=== PATIENT | female | born 1940 | race Caucasian/White ===

== ENCOUNTER 2017-03-16 08:04 | Day surgery (SDC) | payer OTHER ==
[2017-03-16] MEDS ORDERED: LIDOCAINE HCL/PF 2% SDV 5ML VIAL ONE (08:50)
[2017-03-16] MEDS ORDERED: PROPOFOL 20 ML ONE ×3 (08:50)
[2017-03-16 09:14] VITALS: BMI 29.5
[2017-03-16 10:13] VITALS: TEMP 98
[2017-03-16 14:15] VITALS: BP 110/46; PULSE 57
--- NOTE | 2017-03-17 12:35 | PATH ---
Surgical Pathology Report Patient Name: PRINCESS PATRICIA [facility]. Rec. #: [id number] /Age/Gender: 1940 (Age: 76) / F Account: [id number] Location: U-ENDOSCOPY Taken: 03/16/2017 Received: 03/16/2017 Reported: 03/17/2017 Physicians: Karla Barber M.D. Specimen(s) Received A: POLYP MID TRANSVERSE B: POLYPS ASCENDING C: BX CECUM D: BX R/O CECAL POLYP E: POLYP DISTAL TRANSVERSE Clinical History Adenoma surveillance, diarrhea Colon polyps, diverticulosis Final Diagnosis A. COLON, MID TRANSVERSE, POLYP, POLYPECTOMY: FRAGMENTS OF ADENOMATOUS POLYP WITH CAUTERY ARTIFACT. B. COLON, ASCENDING, POLYP, POLYPECTOMY: FRAGMENTS OF TUBULAR ADENOMA. SEPARATE FRAGMENTS OF SESSILE SERRATED ADENOMA. C. COLON, CECUM, BIOPSY: COLONIC WITHOUT SIGNIFICANT PATHOLOGIC CHANGES. NO EVIDENCE OF ACTIVE INFLAMMATION, SIGINIFICANT ARCHITECTURAL DISTORTION, GRANULOMATA OR DYSPLASIA; NO EVIDENCE OF MICROSCOPIC COLITIS. D. COLON, CECUM, R/O POLYP, BIOPSY: CONSISTENT WITH POSTINFLAMMATORY TYPE POLYP. E. COLON, DISTAL TRANSVERSE, POLYP, POLYPECTOMY: HYPERPLASTIC-TYPE POLYP WITH FOCAL FEATURES OF SESSILE SERRATED ADENOMA. Electronically Signed Man Cooper M.D. Gross Description A. Received in formalin, labeled "polyp mid transverse" are 2 qureshi, irregular portions of soft tissue measuring 0.1 and 0.5 cm in greatest dimension. The specimens are submitted in toto in one cassette. B. Received in formalin, labeled "polyps ascending" are 7 qureshi, irregular portions of soft tissue ranging from 0.1-0.3 cm in greatest dimension. The specimens are submitted in toto in one cassette. C. Received in formalin, labeled "biopsy cecum" are 2 qureshi, irregular portions of soft tissue measuring 0.2 and 0.3 cm in greatest dimension. The specimens are submitted in toto in one cassette. D. Received in formalin, labeled "biopsy rule out cecal polyp" are 2 qureshi, irregular portions of soft tissue measuring 0.2 and 0.3 cm in greatest dimension. The specimens are submitted in toto in one cassette. E. Received in formalin, labeled "polyp distal transverse" are 2 qureshi, irregular portions of soft tissue measuring 0.2 and 0.5 cm in greatest dimension. The specimens are submitted in toto in one cassette. 03/16/201703/16/2017
== END 2017-03-16 11:00 | disposition home or self-care (01) ==
LOC: JASU-ENDO 08:04
PROVIDERS: ATTEND Internal Medicine Gastroenterology
PROC: 0DBK8ZX Excision of Ascending Colon, Via Natural or Artificial Opening Endoscopic, Diagnostic (ICD-10-PCS; 2017-03-16)
PROC: 0DBL8ZX Excision of Transverse Colon, Via Natural or Artificial Opening Endoscopic, Diagnostic (ICD-10-PCS; principal; 2017-03-16 09:00)
DX: Z12.11 Encounter for screening for malignant neoplasm of colon (principal); Z86.010 Personal history of colon polyps; D12.3 Benign neoplasm of transverse colon; D12.2 Benign neoplasm of ascending colon; K64.8 Other hemorrhoids; K57.30 Diverticulosis of large intestine without perforation or abscess without bleeding
CPT/HCPCS: 36415; 87045; 87046; 87177; 87209; 88305-TC

== ENCOUNTER → 2020-07-11 | Day surgery (SDC) | payer OTHER ==
--- OUTSIDE RECORDS SUMMARY | 2020-07-11 12:47 | XMS ---
:1940 Author Organization [facility] Support Name Relationship Address Phone RE, RETIRED Unavailable Unavailable Unavailable RE Unavailable Unavailable Unavailable VERNON BRADEN SISTER [address] [place] [address] Re-disclosure Warning The records that you are about to access may contain information from federally- assisted alcohol or drug abuse programs. If such information is present, then the following federally mandated warning applies: This information has been disclosed to you from records protected by federal confidentiality rules (42 CFR part 2). The federal rules prohibit you from making any further disclosure of this information unless further disclosure is expressly permitted by the written consent of the person to whom it pertains or as otherwise permitted by 42 CFR part 2. A general authorization for the release of medical or other information is NOT sufficient for this purpose. The Federal rules restrict any use of the information to criminally investigate or prosecute any alcohol or drug abuse patient.The records that you are about to access may contain highly sensitive health information, the redisclosure of which is protected by Article 27-F of the [facility] Public Health law. If you continue you may haveaccess to information: Regarding HIV / AIDS; Provided by facilities licensed or operated by the [facility] Office of Mental Health; or Provided by the [facility] Office for People With Developmental Disabilities. If such information is present, then the following [facility] mandated warning applies: This information has been disclosed to you from confidential records which are protected by state law. State law prohibits you from making any further disclosure of this information without the specific written consent of the person to whom it pertains, or as otherwise permitted by law. Any unauthorized further disclosure in violation of state law may result in a fine or mcc sentence or both. A general authorization for the release of medical or other information is NOT sufficient authorization for further disclosure. Insurance Providers Payer name Policy type Policy ID Covered Covered libertarian's Policy P darryl / Coverage libertarian ID relationship to Guan Inf ormation type guan [place] [id number] HEALTHCARE (MEDICARE) [place] [id number] HEALTHCARE (MEDICARE) Results ID Date Data Source [id number] 05/07/2020 10:53:00 AM EDT [facility] Name Value Range Interpretation Description Data Sup porting Code Source(s) Document(s ) SARS [facility] coronavirus 2 RNA This lab was ordered by [facility] and reported by [facility]. Procedure
--- NOTE | 2020-07-14 09:53 | OP ---
DATE OF OPERATION: 07/11/2020 PREOPERATIVE DIAGNOSIS: Left breast mass 3 o'clock, 1 cm from the nipple. POSTOPERATIVE DIAGNOSIS: Left breast mass 3 o'clock, 1 cm from the nipple. PROCEDURE: Left ultrasound-guided core biopsy with clip placement. ANESTHESIA: Local. ATTENDING SURGEON: Flash Dominique MD ESTIMATED BLOOD LOSS: Minimal. COMPLICATIONS: None. PROCEDURE: Patient was made aware of the risks and benefits of the procedure and consented. She was placed in the supine position. Under sterile conditions with 2% lidocaine for local anesthesia, a small lc was made in the skin. Using a 10-gauge suction biopsy device via lateral approach under ultrasound guidance multiple cores were obtained and submitted to Pathology. Likewise, under ultrasound guidance a U-shaped clip was placed into the biopsy region. Well tolerated by patient. Steri-Strip and a sterile bandage were applied. We will contact her with the results. FLASH DOMINIQUE M.D. [id number]
--- NOTE | 2020-07-14 16:19 | PATH ---
Surgical Pathology Report Patient Name: PRINCESS PATRICIA Med. Rec. #: [id number] /Age/Gender: 1940 (Age: 80) / F Account: [id number] Location: [facility] RADIOLOGY U Taken: 07/11/2020 Received: 07/11/2020 Reported: 07/14/2020 Physicians: Awilda Hoang M.D. Specimen(s) Received LEFT BREAST 3:00 1CM Clinical History Nonpalpable lesion Ultrasound findings: Suspicious Final Diagnosis BREAST, LEFT, 3:00, 1 CM FN, CORE BIOPSY: INTRADUCTAL PAPILLOMA, FOCALLY HYALINIZED. FIBROCYSTIC CHANGES INCLUDING STROMAL FIBROSIS, DILATED GLANDS, MICROCYSTS, APOCRINE METAPLASIA, MICROCYSTS, USUAL DUCTAL HYPERPLASIA, PATCHY CHRONIC INFLAMMATION, AND HISTIOCYTIC INFILTRATE. Electronically Signed Marimar Casey M.D. Gross Description Received in formalin labeled "left breast biopsy 3:00, 1 cm fn," is a 1.8 x 1.5 x 0.3 cm aggregate of multiple qureshi-yellow, irregular to cylindrical portions of fibroadipose tissue. The formalin is filtered and the specimen is entirely submitted in one cassette. Time to formalin fixation: Less than one minute Total formalin fixation time: Approximately 6 hours. /07/11/2020 [facility]07/11/2020
== END | disposition home or self-care (01) ==
LOC: FRADUS-SUR 12:37
PROVIDERS: ATTEND Surgery Surgical Oncology
PROC: 0H9U3ZX Drainage of Left Breast, Percutaneous Approach, Diagnostic (ICD-10-PCS; principal; 2020-07-11)
DX: D24.2 Benign neoplasm of left breast (principal); N60.32 Fibrosclerosis of left breast; N60.12 Diffuse cystic mastopathy of left breast; N60.82 Other benign mammary dysplasias of left breast; N64.89 Other specified disorders of breast; N63.20 Unspecified lump in the left breast, unspecified quadrant
CPT/HCPCS: 19083; 87899; 88305-TC; A4648

== ENCOUNTER 2021-02-21 11:00 | Emergency (ER) | payer OTHER ==
[2021-02-21 11:12] VITALS: BP 158/87; PULSE 62; TEMP 98.2; BMI 29.2
[2021-02-21 11:53] LABS: BASO % 1.7 % (0-2.0); EOS % 3.6 % (0-4.5); HEMATOCRIT 43.5 % (32.4-45.2); HEMOGLOBIN 14.8 GM/dl (10.7-15.3); LYMPH % 36.2 % (8-40); MCH 30.5 pg (25.7-33.7); MCHC 33.9 g/dl (32.0-36.0); MEAN CELL VOLUME 89.9 fl (80-96); MONO % 7.5 % (3.8-10.2); PLATELET COUNT 278 K/MM3 (134-434); RBC 4.84 M/mm3 (3.60-5.2); RDW 12.6 % (11.6-15.6); WHITE BLOOD COUNT 8.1 K/mm3 (4.0-10.8)
[2021-02-21 12:08] LABS: ALBUMIN 4.5 g/dl (3.4-5.0); BILIRUBIN,TOTAL 0.7 mg/dl (0.2-1); CALCIUM 10.3 mg/dl (8.5-10); MAGNESIUM 1.9 mg/dL (1.8-2.4); TOT PROT 7.7 g/dl (6.4-8.2)
[2021-02-21 12:26] LABS: ACTIVATED PTT 28.3 SECONDS (25.2-36.5); INR 1.19 (0.82-1.09); PROTHROMBIN TIME (PATIENT) 13.2 SEC (10.2-13.0)
== END 2021-02-21 13:14 | disposition home or self-care (01) ==
LOC: FER 11:00
DX: K62.5 Hemorrhage of anus and rectum (principal)
CPT/HCPCS: 36415; 74177-TC; 80053; 81003; 83735; 85025; 85610; 85730; 86850; 86900; 86901; 87086; 99284-25; Q9967

== ENCOUNTER 2022-05-25 11:10 | Emergency (ER) | payer OTHER ==
[2022-05-25 11:14] VITALS: BP 153/83; PULSE 59; RESP 18; TEMP 97.8; BMI 26.2
[2022-05-25 13:32] LABS: BASO % 0.7 % (0-2.0); EOS % 1.4 % (0-4.5); HEMATOCRIT 39.3 % (32.4-45.2); HEMOGLOBIN 13.1 GM/dL (10.7-15.3); LYMPH % 31.4 % (8-40); MCH 29.6 pg (25.7-33.7); MCHC 33.4 g/dl (32.0-36.0); MEAN CELL VOLUME 88.7 fl (80-96); MEAN PLT VOLUME 8.7 fl (7.5-11.1); MONO % 5.1 % (3.8-10.2); NEUT % 61.4 % (42.8-82.8); PLATELET COUNT 270 10^3/uL (134-434); RBC 4.43 M/mm3 (3.60-5.2); RDW 13.2 % (11.6-15.6); WHITE BLOOD COUNT 8.4 K/mm3 (4.0-10.0)
[2022-05-25 15:04] LABS: INR 1.06 (0.83-1.09); PROTHROMBIN TIME (PATIENT) 12.2 SEC (9.7-13.0)
[2022-05-25 15:07] LABS: ACTIVATED PTT 30.1 SECONDS (25.2-36.5)
[2022-05-25 15:20] LABS: BLOOD UREA NITROGEN 24.6 mg/dL (7-18); CALCIUM 10.3 mg/dL (8.5-10.1)
[2022-05-25 15:24] LABS: CREATININE 0.8 mg/dL (0.55-1.3)
[2022-05-25 15:25] LABS: BILIRUBIN,TOTAL 0.5 mg/dL (0.2-1); TOT PROT 7.3 g/dl (6.4-8.2)
[2022-05-25 15:27] LABS: ALBUMIN 4.2 g/dl (3.4-5.0)
== END 2022-05-25 14:26 | disposition home or self-care (01) ==
LOC: JER 11:10
DX: K64.9 Unspecified hemorrhoids (principal)
CPT/HCPCS: 36415; 80053; 82272; 85025; 85610; 85730; 99283-25

== ENCOUNTER 2023-06-01 04:35 | Day surgery (SDC) | payer OTHER ==
[2023-05-30 12:20] VITALS: BMI 26.4
[2023-06-01 11:33] VITALS: TEMP 97.5
[2023-06-01 12:03] VITALS: RESP 17
[2023-06-01 12:15] VITALS: BP 130/45; PULSE 51
== END 2023-06-01 12:14 | disposition home or self-care (01) ==
LOC: JASU-ENDO 04:35
PROVIDERS: ATTEND Internal Medicine Gastroenterology
PROC: 0DBH8ZX Excision of Cecum, Via Natural or Artificial Opening Endoscopic, Diagnostic (ICD-10-PCS; 2023-06-01)
PROC: 0DBL8ZX Excision of Transverse Colon, Via Natural or Artificial Opening Endoscopic, Diagnostic (ICD-10-PCS; principal; 2023-06-01 11:00)
DX: Z12.11 Encounter for screening for malignant neoplasm of colon (principal); D12.0 Benign neoplasm of cecum; D12.3 Benign neoplasm of transverse colon; K64.8 Other hemorrhoids; K57.30 Diverticulosis of large intestine without perforation or abscess without bleeding; Z86.010 Personal history of colon polyps; Z80.0 Family history of malignant neoplasm of digestive organs; I10 Essential (primary) hypertension